=== PATIENT | female | born 1990 | race Caucasian/White ===

== ENCOUNTER → 2016-10-15 | Outpatient (CLI) | payer BC ==
[~2016-10-15] MED LIST: INSDGI SC; INSUINJ14 SQ; METH5TAB4 PO
--- NOTE | 2016-10-15 19:43 | DIAGNOSTIC IMAGING REPORT ---
RIGHT TOE(S) MIN 2 VIEWS CLINICAL HISTORY: S99.921A,S99.929A Right trauma. Pain. COMPARISON: None. DISCUSSION: Tiny nondisplaced cortical fracture base distal phalanx. Mild soft tissue edema. No evidence dislocation. IMPRESSION: Nondisplaced small cortical fracture base distal phalanx fifth toe. Electronically signed by: Meño Hall M.D. 10/15/2016 7:40 PM Dictated Date/Time: 10/15/2016 7:39 PM
--- NOTE | 2016-10-15 19:44 | DIAGNOSTIC IMAGING REPORT ---
RIGHT FOOT MIN 3 VIEWS ROUTINE CLINICAL HISTORY: S99.921A,S99.929A Right trauma. Pain. COMPARISON: None. DISCUSSION: The bones and joint spaces appear intact. There is no evidence of fracture, dislocation or bony disease. There is no evidence for soft tissue swelling. IMPRESSION: Negative study. See fifth toe detailed report Electronically signed by: Meño Hall M.D. 10/15/2016 7:41 PM Dictated Date/Time: 10/15/2016 7:41 PM
== END | disposition home or self-care (01) ==
LOC: C.RAD 18:52
PROVIDERS: ATTEND Family Medicine
DX: S92.534A Nondisplaced fracture of distal phalanx of right lesser toe(s), initial encounter for closed fracture (principal); X58.XXXA Exposure to other specified factors, initial encounter